=== PATIENT | male | born 2000 | race Caucasian/White ===

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

== ENCOUNTER 2020-07-09 17:26 | Emergency (ER) | payer OTHER ==
[~2020-07-09] VITALS: Ht 187.9 cm; Wt 81.6 kg
[~2020-07-09 17:26] MED LIST changes: +CYCLOBENZAPRINE5 M3 PO
== END 2020-07-09 20:21 | disposition home or self-care (01) ==
LOC: ED 17:26
DX: M77.8 Other enthesopathies, not elsewhere classified (principal)

== ENCOUNTER → 2021-07-27 | Outpatient (CLI) | payer BC | END | disposition home or self-care (01) | LOC: COVID19 15:31 | PROVIDERS: ATTEND Student in an Organized Health Care Education/Training Program | DX: Z11.52 Encounter for screening for COVID-19 (principal) ==

== ENCOUNTER → 2021-07-31 | Outpatient (CLI) | payer BC, OTHER | END | disposition home or self-care (01) | LOC: US 07-29 13:00 | PROVIDERS: ATTEND Family Medicine | DX: N50.3 Cyst of epididymis (principal); N50.89 Other specified disorders of the male genital organs ==

== ENCOUNTER 2021-09-21 11:56 | Emergency (ER) | payer BC, OTHER ==
[~2021-09-21] VITALS: Ht 187.9 cm; Wt 93.0 kg
[2021-09-21 12:49] LABS: BASO % 0.3 % (0.0-1.0); EOS # 0.1 10*3/uL (0.0-0.4); EOS % 0.8 % (1.0-4.0); HEMATOCRIT 48.6 % (42.0-52.0); LYMPH # 1.3 10*3/uL (1.3-4.4); LYMPH % 17.6 % (27.0-41.0); MEAN CELL VOLUME 88.4 fl (80.0-94.0); MEAN CORPUSCULAR HGB 28.9 pg (27.0-31.0); MEAN CORPUSCULAR HGB CONC 32.7 g/dl (33.0-37.0); MEAN PLATELET VOLUME 9.2 fl (9.6-12.3); MONO # 0.6 10*3/uL (0.1-1.0); MONO % 7.9 % (3.0-9.0); NEUT # 5.3 10*3/uL (2.3-7.9); NEUT % 73.1 % (47.0-73.0); PLATELET COUNT AUTOMATED 261 10*3/uL (130-400); RED CELL DISTRI WIDTH 13.2 % (0-14.5); WHITE BLOOD COUNT 7.2 10*3/uL (4.8-10.8)
[2021-09-21 13:04] LABS: ALKALINE PHOSPHATASE 107 U/L (45-117); BUN 19 mg/dl (7-24); CHLORIDE 105 mmol/L (98-107); CREATININE 0.92 mg/dL (0.70-1.30); LIPASE 146 U/L (73-393); POTASSIUM 4.2 mmol/L (3.5-5.1); SGOT/AST 14 IU/L (3-35); SGPT/ALT 23 U/L (12-78); SODIUM 140 mmol/L (136-145); TOTAL PROTEIN 7.5 gm/dL (6.4-8.2)
== END 2021-09-21 15:36 | disposition home or self-care (01) ==
LOC: ED 11:56
PROVIDERS: Physician Assistant
DX: R07.81 Pleurodynia (principal)